=== PATIENT | female | born 1955 | race Caucasian/White ===

== ENCOUNTER → 2016-12-31 | Outpatient (CLI) | payer BC | LOC: BMCIMAGING 12:30 | PROVIDERS: ATTEND Family Medicine | DX: Z13.820 Encounter for screening for osteoporosis (principal); M81.0 Age-related osteoporosis without current pathological fracture; N93.9 Abnormal uterine and vaginal bleeding, unspecified; N84.0 Polyp of corpus uteri ==

== ENCOUNTER 2017-10-29 07:42 | Day surgery (SDC) | payer BC ==
[2017-10-29] MEDS ORDERED: LR 1,000 ML IV ONE (07:55)
[2017-10-29] MEDS ORDERED: LIDOCAINE 1% 2 ML INJ ID PRN (07:56)
--- NOTE | 2017-10-29 08:53 | PDANEPAE ---
ANE History of Present Illness vaginal bleeding ANE Past Medical History - Cardiovascular History Hx Hypertension: No Hx Arrhythmias: No Hx Chest Pain: No Hx Coronary Artery / Peripheral Vascular Disease: No Hx CHF / Valvular Disease: No Hx Palpitations: No - Pulmonary History Hx COPD: No Hx Asthma/Reactive Airway Disease: No Hx Recent Upper Respiratory Infection: No Hx Oxygen in Use at Home: No Hx Sleep Apnea: No Sleep Apnea Screening Result - Last Documented: Negative - Neurologic History Hx Cerebrovascular Accident: No Hx Seizures: No Hx Dementia: No - Endocrine History Hx Diabetes: No Hypothyroid: No Hyperthyroid: No Obesity: no - Renal History Hx Renal Disorders: No - Liver History Hx Hepatic Disorders: No - Neurological & Psychiatric Hx Hx Neurological and Psychiatric Disorders: Yes Neurological / Psychiatric History Comment: depression,anxiety, ADHD - Cancer History Hx Cancer: Yes Cancer History Comment: basal cell - Congenital Disorder History Hx Congenital Disorders: No - GI History GERD: mild Hx Gastrointestinal Disorders: Yes Gastrointestinal History Comment: reflux,IBS diarrhea, uses Zantac prn - Other Health History Other Health History: none - Chronic Pain History Chronic Pain: No - Surgical History Prior Surgeries: face lift ANE Review of Systems Review of Systems: - Exercise capacity METS (RN): 4 METS ANE Patient History - Allergies Allergies/Adverse Reactions: cat dander Allergy (Mild, Verified 10/22/17 16:17) Other-Enter Comments caviar Allergy (Uncoded 10/22/17 16:17) - Home Medications Home Medications: Calcium 10/22/17 [Last Taken 10/22/17] Clonazepam 10/22/17 [Last Taken 10/28/17] Macrodantin PRN 10/22/17 [Last Taken 10/22/17] Vyvanse 10/22/17 [Last Taken 10/28/17] - NPO status NPO Since - Liquids (Date): 10/29/17 NPO Since - Liquids (Time): 23:30 NPO Since - Solids (Date): 10/28/17 NPO Since - Solids (Time): 21:00 - Anes Hx Hx Anesthesia Complications (with details): pt. reports anti-nausea medication resulted in her feeling cold and depressed, would prefer not to get any anti- nausea prophylaxis - Smoking Hx Smoking Status: Former smoker Marijuana use: Yes - Alcohol Use Alcohol Use: Other (1 beer X 2/week) - Family Anes Hx Family Anes Hx: none Family Hx Anesthesia Complications: none ANE Labs/Vital Signs - Vital Signs Blood Pressure: 101/58 Heart Rate: 57 Respiratory Rate: 16 O2 Sat (%): 95 Height: 162.56 cm Weight: 53.07 kg ANE Physical Exam - Airway Neck exam: FROM - Pulmonary Pulmonary: clear to auscultation - Cardiovascular Cardiovascular: regular rate and rhythym - ASA Status ASA Status: II ANE Anesthesia Plan Anesthesia Plan: GA w LMA (LMA proseal, patient requests no anti-nausea prophylaxis be given because of prior negative response)
[2017-10-29] MEDS ORDERED: MIDAZOLAM 2 MG/2 ML VIAL IVP ONE (08:56)
[2017-10-29] MEDS ORDERED: LIDO/EPI 2%** Not for Epidural 20 ML MDV ONE (09:01)
[2017-10-29] MEDS ORDERED: fentaNYL 100 MCG/2 ML INJ ONE ×2 (09:02→10:30)
[2017-10-29] MEDS ORDERED: PROPOFOL 200 MG/20 ML VIAL ONE (09:02)
[2017-10-29] MEDS ORDERED: LIDOCAINE 1% 300 MG/30 ML SDV ONE (09:03)
--- NOTE | 2017-10-29 09:23 | PDHPUP ---
History & Physical Update H&P update statement: This history and physical update is based on an assessment of the patient which was completed after admission or registration (within 24 hours), but prior to the surgery/procedure. H&P update: H&P reviewed & patient examined, no change in patient's condition since H&P completed, changes noted
[2017-10-29] MEDS ORDERED: NALOXONE HCL 0.4 MG/ML INJ IVP PRN (09:56)
[2017-10-29] MEDS ORDERED: HYDROCODONE/APAP 5/325 TAB PO PRN (09:56)
[2017-10-29] MEDS ORDERED: ACETAMINOPHEN 500 MG TAB PO PRN (09:56)
[2017-10-29] MEDS ORDERED: fentaNYL 100 MCG/2 ML INJ IVP PRN (09:56)
[2017-10-29] MEDS ORDERED: oxyCODONE IR 5 MG TAB PO PRN (09:56)
--- NOTE | 2017-10-29 10:14 | POSTOPPROG ---
Post Op Note Date of Operation: 10/29/17 Surgeon: Priti Cha Anesthesiologist: Davey Benson Anesthesia: LMA Pre-op Diagnosis: PMB, polyps Post-op Diagnosis: same Indication: bleeding and polyps Procedure: H/S polypectomy Findings: polyps Inf/Abcess present in the surg proc area at time of surgery?: No EBL: Minimal
--- NOTE | 2017-10-29 10:29 | POSTANESTH ---
Post Anesthetic Evaluation Cardiovascular Status: Normal, Stable Respiratory Status: Normal, Stable Level of Consciousness/Mental Status: Can Participate in Eval Pain Control: Adequate, Prn Tx Ordered Nausea/Vomiting Control: Adequate, Prn Tx Ordered Complications Possibly Related to Anesthesia: None Noted
[2017-10-29] MEDS ORDERED: HYDROCODONE/APAP 5/325 TAB ONE (12:35)
[2017-10-29 12:47] VITALS: BP 88/49
--- NOTE | 2017-10-29 14:25 | GOP ---
[f rep st] OPERATIVE REPORT DATE OF OPERATION: SURGEON: Priti Cha MD ANESTHESIA: General with LMA. ANESTHESIOLOGIST: Davey Benson MD PREOPERATIVE DIAGNOSIS: Postmenopausal bleeding, status post uterine ablation and noted endometrial polyps. POSTOPERATIVE DIAGNOSIS: Postmenopausal bleeding, status post uterine ablation and noted endometrial polyps. PROCEDURE PERFORMED: Hysteroscopic polypectomy. FINDINGS: Very stenotic and scarred cervix and there was some difficulty with dilation, but once ins anne the endometrium, there were several posterior wall polyps. Normal tubal ostia. ESTIMATED BLOOD LOSS: Minimal. INDICATIONS: Patient is a 62-year-old who was referred here by Dr. Wells from [facility], for postm enopausal bleeding and ultrasound that showed likely endometrial polyp. The patient desires removal of the polyp. DESCRIPTION OF PROCEDURE: With informed consent signed, patient taken to the operating room, placed under general anesthesia without complication, placed in the low dorsal lithotomy position, prepped a nd draped in the usual sterile fashion. Time-out process performed, and then tenaculum placed on the anterior lip of the cervix. Cervix dilated up to 6 mm. However, because there was such stenotic in ternal os and lower uterine segment, this was somewhat difficult. However, after about 15 minutes of very gentle dilation, I was able to get into the endometrium, and uterus sounded to 6 cm. A hystero scope was placed, using normal saline as a filling medium and findings as noted above. The [employer] morcellator placed into the uterus and resection of the endometrial polyps done. On ce this was felt to be completed, the hysteroscope removed and net fluid deficit was 80 cc. Patient was placed in supine position on the operating table, taken to the recovery room in stable condition. Tolerated the procedure well. COMPLICATIONS: None. Copy requested to: Dr. Russell Gilman /[id number]/MODL
== END 2017-10-29 12:47 | disposition home or self-care (01) ==
LOC: FSGY 07:42
PROVIDERS: ATTEND Obstetrics & Gynecology Gynecology
PROC: 0UB98ZX Excision of Uterus, Via Natural or Artificial Opening Endoscopic, Diagnostic (ICD-10-PCS; principal; 2017-10-29 09:00)
DX: N84.0 Polyp of corpus uteri (principal); N95.0 Postmenopausal bleeding; Z85.828 Personal history of other malignant neoplasm of skin; Z87.891 Personal history of nicotine dependence
CPT/HCPCS: 58558; C1782; J0171; J2250; J2704; J3010

== ENCOUNTER → 2017-12-09 | Outpatient (CLI) | payer BC | LOC: BMCIMAGING 10:22 | PROVIDERS: ATTEND Emergency Medicine | DX: M79.672 Pain in left foot (principal) ==

== ENCOUNTER → 2018-01-26 | Outpatient (CLI) | payer BC | LOC: BMCIMAGING 12:42 | PROVIDERS: ATTEND Obstetrics & Gynecology Gynecology | DX: Z12.31 Encounter for screening mammogram for malignant neoplasm of breast (principal) ==